=== PATIENT | male | born 1945 | race Caucasian/White ===

== ENCOUNTER 2016-09-11 18:44 | Observation (INO) | payer OTHER ==
[~2016-09-11] VITALS: Ht 177.8 cm; Wt 76.4 kg
[~2016-09-11 18:44] MED LIST: ASPIRIN EC325 MG PO; FLEXERIL10 MG PO; FLUMADINE PO; IBUPROFEN800 MG PO; PANTOPRAZOLE SO40 MG PO; SIMVASTATIN10 MG PO; VICODIN ES 71 TABLET PO; VICODIN,LORT1 TABLET PO
[2016-09-11 19:16] LABS: HEMATOCRIT 41.4 % (38.0-50.0); MCH 30.4 PG (29.0-34.0); MCHC 33.8 G/DL (30.0-36.0); MEAN PLAT.VOLUME 10.2 uM^3 (9.0-12.4); PLATELET COUNT 279 K/uL (156-360); RBC DIS.WIDTH-CV 12.8 % (11.8-14.6); RBC DIS.WIDTH-SD 41.8 % (39-53); WHITE BLOOD COUNT 8.5 K/uL (4.1-10.2)
[2016-09-11 19:26] LABS: CHLORIDE 112 mEq/L (99-109); POTASSIUM 3.7 mEq/L (3.7-5.4); SODIUM 142 mEq/L (136-147)
[2016-09-11 19:27] LABS: GLUCOSE 92 mg/dL (70-99)
[2016-09-11 19:29] LABS: ANION GAP 10 MEQ/L (2-14)
[2016-09-11 19:31] LABS: GFR ESTIMATE (CALCULATED) > 59 mL/min/
[2016-09-11 19:32] LABS: UREA NITROGEN (BUN) 14 mg/dL (9-23)
[2016-09-11 19:39] LABS: TROP-I INTERPRETATION NEGATIVE; TROPONIN-I < 0.01 ng/mL (0.0-0.30)
[2016-09-11] MEDS ORDERED: HYDROCODON-ACE1 EAC9 PO (21:12)
[2016-09-11] MEDS ORDERED: RANITIDINE HCL300 MG PO (21:13)
[2016-09-11] MEDS ORDERED: CARAFATE100 MG/ML PO (21:15)
[2016-09-11] MEDS ORDERED: AMLODIPINE BESYL5 MG PO (21:15)
[2016-09-11] MEDS ORDERED: LIDOCAINE700 MG TD (21:15)
[2016-09-11] MEDS ORDERED: SIMVASTATIN20 MG PO (21:17)
[2016-09-11] MEDS ORDERED: OMEPRAZOLE40 M1 PO (21:21)
[2016-09-11 22:16] LABS: D-DIMER ELISA 0.22 mg/L FEU (< 0.57)
[2016-09-11 22:17] LABS: TOTAL BILIRUBIN 0.3 mg/dL (0.0-1.0)
[2016-09-11 22:18] LABS: ALKALINE PHOSPHATASE 75 IU/L (3-129)
[2016-09-11 22:21] LABS: DIRECT BILIRUBIN 0.1 mg/dL (0.0-0.3)
[2016-09-11 22:22] LABS: LIPASE 45 U/L (1.0-51.0)
[2016-09-11 23:00] VITALS: BP 109/70
[2016-09-12 01:42] LABS: TROP-I INTERPRETATION NEGATIVE; TROPONIN-I < 0.01 ng/mL (0.0-0.30)
[2016-09-12 04:30] VITALS: BP 118/68
[2016-09-12 08:27] LABS: TROP-I INTERPRETATION NEGATIVE; TROPONIN-I < 0.01 ng/mL (0.0-0.30)
[2016-09-12] MEDS ORDERED: ASPIR-LOW81 MG PO (08:36)
[2016-09-12 08:51] VITALS: BP 110/67
[2016-09-12] MEDS ORDERED: NITROSTAT0.4 MG SL (11:07)
== END 2016-09-12 12:16 | disposition home or self-care (01) ==
LOC: EME 18:44 → EDOF 21:35 → 5WEST 21:35 → EDOF 21:35 → 5WEST 22:44
PROVIDERS: Hospitalist
DX: R07.9 Chest pain, unspecified (principal); I10 Essential (primary) hypertension; E78.5 Hyperlipidemia, unspecified; I25.10 Atherosclerotic heart disease of native coronary artery without angina pectoris; Z95.5 Presence of coronary angioplasty implant and graft; K21.9 Gastro-esophageal reflux disease without esophagitis; G89.29 Other chronic pain; M54.9 Dorsalgia, unspecified; Z87.891 Personal history of nicotine dependence
CPT/HCPCS: 71020; 80048; 80076; 83690; 84484; 85027; 85379; 93005; 99281; 99285; G0378

== ENCOUNTER 2017-12-30 13:05 | Emergency (ER) | payer OTHER ==
[~2017-12-30] VITALS: Ht 177.8 cm; Wt 73.0 kg
[~2017-12-30 13:05] MED LIST changes: +AMLODIPINE BESYL5 MG PO; +ASPIR-LOW81 MG PO; +CARAFATE100 MG/ML PO; +HYDROCODON-ACE1 EAC9 PO; +LIDOCAINE700 MG TD; +NITROSTAT0.4 MG SL; +OMEPRAZOLE40 M1 PO; +RANITIDINE HCL300 MG PO; +SIMVASTATIN20 MG PO
[2017-12-30 13:48] LABS: HEMOGLOBIN 14.6 G/DL (12.5-16.6); MCH 32.1 PG (29.0-34.0); MCHC 35.6 G/DL (30.0-36.0); MCV 90.1 FL (86-99); PLATELET COUNT 231 K/uL (156-360); RBC DIS.WIDTH-CV 12.8 % (11.8-14.6); RBC DIS.WIDTH-SD 42.1 % (39-53); RED BLOOD COUNT 4.55 M/uL (4.00-5.50); WHITE BLOOD COUNT 7.7 K/uL (4.1-10.2)
[2017-12-30 14:10] LABS: ALBUMIN 4.3 G/DL (3.2-4.8); CHLORIDE 107 MEQ/L (99-109); POTASSIUM 4.4 MEQ/L (3.7-5.4); SODIUM 141 MEQ/L (136-147); TOTAL BILIRUBIN 0.6 MG/DL (0.0-1.0)
[2017-12-30 14:15] LABS: ALKALINE PHOSPHATASE 76 IU/L (3-129); ALT (GPT) 15 IU/L (3-49); AST (GOT) 13 IU/L (2-34); GFR ESTIMATE (CALCULATED) > 59 mL/min/ (58.99-99999); GLUCOSE 97 mg/dL (70-99); TOTAL PROTEIN 6.7 G/DL (6.4-8.3); UREA NITROGEN (BUN) 10 mg/dL (9-23)
[2017-12-30 15:17] LABS: APPEARANCE CLEAR ((CLEAR)); BILIRUBIN NEGATIVE; BLOOD NEGATIVE; COLOR STRAW ((YELLOW)); GLUCOSE (STRIP) NEGATIVE; KETONES NEGATIVE; LEUKOCYTES NEGATIVE; NITRITE NEGATIVE; PROTEIN (STRIP) NEGATIVE; SPECIFIC GRAVITY 1.006 (1.000-1.030); UCUL ADDED? NO; UROBILINOGEN 0.2 MG/DL (0.2-1.0)
[2017-12-30 15:41] VITALS: BP 151/74
== END 2017-12-30 15:41 | disposition home or self-care (01) ==
LOC: EME 13:05
PROVIDERS: Nurse Practitioner Family
DX: R10.31 Right lower quadrant pain (principal); N28.1 Cyst of kidney, acquired; Z87.442 Personal history of urinary calculi; K57.30 Diverticulosis of large intestine without perforation or abscess without bleeding; N40.0 Benign prostatic hyperplasia without lower urinary tract symptoms; I25.2 Old myocardial infarction; Z87.891 Personal history of nicotine dependence
CPT/HCPCS: 74176; 80053; 81003; 85027; 99281; 99285; J1885